=== PATIENT | female | born 1980 | race Caucasian/White ===

== ENCOUNTER 2017-10-28 01:41 | Inpatient (IN) ==
[2017-10-28] MEDS ORDERED: SODIUM CHLORIDE 0.9% 1,000 ML IV STA (03:30)
[2017-10-28] MEDS: SODIUM CHLORIDE 0.9% 1,000 ML IV SCH ×2 (05:15→13:00)
[2017-10-28 06:59] LABS: Basophils % 0.3 % (0.0-0.8); Eosinophils # 0.1 10*3/uL (0.0-0.87); Eosinophils % 0.5 % (0.00-10.9); Hematocrit 32.4 VOL% (35.7-47.0); Hemoglobin 10.3 GM/DL (12.0-16.0); Immature Granulocytes % 0.5 %; Immature Granulocytes Absolute 0.06 #; Lymphocytes # 3.1 10*3/uL (1.4-4.0); Lymphocytes % 23.9 % (21.3-54.2); Mean Corpuscular HGB Conc 31.8 GM/DL (32-36); Mean Corpuscular Hemoglobin 30 PG (27-34); Mean Corpuscular Volume 94.2 FL (87-102); Mean Platelet Volume 10.3 FL (9.6-12.0); Monocytes # 0.9 10*3/uL (0.11-0.8); Monocytes % 7.3 % (1.7-12.7); Neutrophils # 8.7 10*3/uL (1.4-7.4); Neutrophils % 67.5 % (38.7-73.9); Platelet Count 367 T/CUMM (130-400); Red Blood Count 3.44 MC/CUMM (3.8-5.5); Red Cell Distribution Width 14.2 % (9.3-17.3); White Blood Count 12.8 T/CUMM (4-12)
[2017-10-28 07:28] LABS: Calcium 7.9 MG/DL (8.5-10.1); Osmolality,Calculated 277.4 MOS/KG (273-304); Potassium 4.1 MMOL/L (3.5-5.1)
[2017-10-28] MEDS: ENOXAPARIN 40 MG/0.4 ML SYRINGE SUBCUT SCH (10:35)
[2017-10-28 13:06] LABS: ABG Base Excess -6.1 MMOL/L (-2.5-2.5); ABG HCO3 18.5 MMOL/L (20-26); ABG Oxygen Saturation 95.5 % (95-100); ABG PCO2 33.5 MM HG (35-48); ABG PO2 84.3 MM HG (80-95); ABG TCO2 19.5 MMOL/L (23-27)
[2017-10-28] MEDS: PIPERACILLIN/TAZOBACTAM 3,375 MG in SODIUM CHLORIDE 0.9% 100 ML IV SCH ×2 (17:34→20:18)
[2017-10-29] MEDS: KETOROLAC 15 MG/1 ML VIAL IV PRN (00:27)
[2017-10-29] MEDS: SODIUM CHLORIDE 0.9% 1,000 ML IV SCH ×5 (01:38→22:53)
[2017-10-29 04:39] LABS: Basophils # 0.1 10*3/uL (0.0-0.2); Basophils % 0.3 % (0.0-0.8); Eosinophils % 0.1 % (0.00-10.9); Hematocrit 30.1 VOL% (35.7-47.0); Hemoglobin 9.5 GM/DL (12.0-16.0); Immature Granulocytes % 0.8 %; Immature Granulocytes Absolute 0.17 #; Lymphocytes # 4.1 10*3/uL (1.4-4.0); Lymphocytes % 18.4 % (21.3-54.2); Mean Corpuscular HGB Conc 31.6 GM/DL (32-36); Mean Corpuscular Hemoglobin 30 PG (27-34); Mean Corpuscular Volume 95.6 FL (87-102); Mean Platelet Volume 10.2 FL (9.6-12.0); Monocytes # 1.1 10*3/uL (0.11-0.8); Monocytes % 4.9 % (1.7-12.7); Neutrophils % 75.5 % (38.7-73.9); Platelet Count 343 T/CUMM (130-400); Red Blood Count 3.15 MC/CUMM (3.8-5.5); Red Cell Distribution Width 14.6 % (9.3-17.3); White Blood Count 22.5 T/CUMM (4-12)
[2017-10-29 05:02] LABS: Band Neutrophils 1 % (0-10); Giant Platelets Few; Hypochromasia 1+; Lymphocytes 22 % (20-55); Platelet Estimate Adequate; Segmented Neutrophils 75 % (50-85); Total Cells Counted 100
[2017-10-29] MEDS ORDERED: HALOPERIDOL 5 MG/ML AMP IV ONE (05:30)
[2017-10-29] MEDS: PIPERACILLIN/TAZOBACTAM 3,375 MG in SODIUM CHLORIDE 0.9% 100 ML IV SCH (05:30)
[2017-10-29] MEDS: ENOXAPARIN 40 MG/0.4 ML SYRINGE SUBCUT SCH (08:55)
[2017-10-29] MEDS ORDERED: SODIUM CHLORIDE 0.9% 2,750 ML IV ONE (08:56)
[2017-10-29 09:50] LABS: Amorphous Crystals,Urine Occasional /HPF (Few); Apearance,Urine CLOUDY (Clear); Bilirubin,Urine Negative (Negative); Blood, Urine Large mg/dL (Negative); Glucose,Urine (UA) Negative (Negative); Ketones,Urine 5 mg/dL (Negative); Mucus,Urine Occasional /LPF (Occasional); Nitrite,Urine Negative (Negative); Protein,Urine 100 MG/DL; RBC,Urine 1490 /HPF (0-4); Squamous Epithelial Cell,Urine Occasional /HPF (0-10); Urine Color Yellow (Yellow); Urine Specific Gravity 1.029 (1.001-1.035); WBC,Urine 15 /HPF (0-6)
[2017-10-29 09:54] LABS: ABG Base Excess -2.9 MMOL/L (-2.5-2.5); ABG Oxygen Saturation 98.7 % (95-100); ABG PCO2 37.6 MM HG (35-48); ABG PH 7.374 (7.35-7.45); ABG TCO2 20.3 MMOL/L (23-27)
[2017-10-29] MEDS ORDERED: cefTRIAXone 2,000 MG in SYRINGE 1 EACH IV SCH (10:00)
[2017-10-29] MEDS ORDERED: VANCOMYCIN INJ 1,250 MG in SODIUM CHLORIDE 0.45% 250 ML IV SCH (10:00)
[2017-10-29] MEDS ORDERED: ACYCLOVIR INJ 700 MG in SODIUM CHLORIDE 0.9% 250 ML IV SCH (10:00)
[2017-10-29] MEDS ORDERED: LORazepam 2 MG/1 ML VIAL IV ONE ×2 (10:28→13:00)
[2017-10-29] MEDS: cefTRIAXone 1,000 MG in SYRINGE 1 EACH IV SCH (10:51)
[2017-10-29] MEDS: carBAMazepine 200 MG TABLET PO SCH ×2 (10:51→21:05)
[2017-10-29] MEDS: OSELTAMIVIR 75 MG CAPSULE PO SCH ×2 (10:51→21:05)
[2017-10-29] MEDS ORDERED: LORazepam 2 MG/1 ML VIAL ONE (12:33)
[2017-10-29 13:21] LABS: Appearance,CSF Clear; Red Blood Cell,CSF 52 C/CUMM; White Blood Cell,CSF 15 C/CUMM
[2017-10-29 13:22] LABS: Lymphocytes,CSF 67 %; Neutrophils,CSF 26 %
[2017-10-29 13:23] LABS: Monocytes,CSF 7 %
[2017-10-29 13:28] LABS: Glucose,CSF 62 MG/DL (40-70)
[2017-10-29] MEDS: LORazepam 2 MG/1 ML VIAL IV PRN (21:05)
[2017-10-30] MEDS: LORazepam 2 MG/1 ML VIAL IV PRN ×3 (03:00→22:07)
[2017-10-30] MEDS: SODIUM CHLORIDE 0.9% 1,000 ML IV SCH ×4 (03:13→23:35)
[2017-10-30 05:16] LABS: Basophils # 0.1 10*3/uL (0.0-0.2); Basophils % 0.4 % (0.0-0.8); Eosinophils # 0.1 10*3/uL (0.0-0.87); Eosinophils % 0.6 % (0.00-10.9); Hematocrit 26.7 VOL% (35.7-47.0); Hemoglobin 8.6 GM/DL (12.0-16.0); Immature Granulocytes % 0.6 %; Immature Granulocytes Absolute 0.08 #; Lymphocytes # 2.5 10*3/uL (1.4-4.0); Lymphocytes % 17.7 % (21.3-54.2); Mean Corpuscular HGB Conc 32.2 GM/DL (32-36); Mean Corpuscular Hemoglobin 31 PG (27-34); Mean Corpuscular Volume 94.7 FL (87-102); Mean Platelet Volume 10.7 FL (9.6-12.0); Monocytes # 0.8 10*3/uL (0.11-0.8); Monocytes % 5.7 % (1.7-12.7); Neutrophils # 10.7 10*3/uL (1.4-7.4); Platelet Count 301 T/CUMM (130-400); Red Blood Count 2.82 MC/CUMM (3.8-5.5); Red Cell Distribution Width 14.4 % (9.3-17.3); White Blood Count 14.3 T/CUMM (4-12)
[2017-10-30 08:45] LABS: HIV Antigen/Antibody Result Nonreactive (Nonreactive)
[2017-10-30] MEDS: ENOXAPARIN 40 MG/0.4 ML SYRINGE SUBCUT SCH (08:53)
[2017-10-30] MEDS: carBAMazepine 200 MG TABLET PO SCH ×2 (08:53→22:06)
[2017-10-30] MEDS: OSELTAMIVIR 75 MG CAPSULE PO SCH ×2 (08:53→22:05)
[2017-10-30] MEDS: cefTRIAXone 1,000 MG in SYRINGE 1 EACH IV SCH (10:58)
[2017-10-30] MEDS: KETOROLAC 15 MG/1 ML VIAL IV PRN (19:03)
[2017-10-31] MEDS: KETOROLAC 15 MG/1 ML VIAL IV PRN ×2 (00:37→09:13)
[2017-10-31] MEDS: LORazepam 2 MG/1 ML VIAL IV PRN ×3 (05:47→16:48)
[2017-10-31 06:30] LABS: Basophils # 0.1 10*3/uL (0.0-0.2); Basophils % 0.5 % (0.0-0.8); Eosinophils # 0.2 10*3/uL (0.0-0.87); Eosinophils % 2.2 % (0.00-10.9); Hematocrit 27.1 VOL% (35.7-47.0); Hemoglobin 8.8 GM/DL (12.0-16.0); Immature Granulocytes % 0.5 %; Immature Granulocytes Absolute 0.05 #; Lymphocytes # 3.5 10*3/uL (1.4-4.0); Mean Corpuscular HGB Conc 32.5 GM/DL (32-36); Mean Corpuscular Hemoglobin 30 PG (27-34); Mean Corpuscular Volume 93.4 FL (87-102); Mean Platelet Volume 11.3 FL (9.6-12.0); Monocytes # 0.6 10*3/uL (0.11-0.8); Monocytes % 6.1 % (1.7-12.7); Neutrophils # 5.3 10*3/uL (1.4-7.4); Neutrophils % 54.7 % (38.7-73.9); Platelet Count 310 T/CUMM (130-400); Red Cell Distribution Width 13.9 % (9.3-17.3); White Blood Count 9.7 T/CUMM (4-12)
[2017-10-31] MEDS: OSELTAMIVIR 75 MG CAPSULE PO SCH ×2 (09:13→21:10)
[2017-10-31] MEDS: ENOXAPARIN 40 MG/0.4 ML SYRINGE SUBCUT SCH (09:13)
[2017-10-31] MEDS: carBAMazepine 200 MG TABLET PO SCH ×2 (09:13→21:11)
[2017-10-31] MEDS: SODIUM CHLORIDE 0.9% 1,000 ML IV SCH ×3 (16:46→22:20)
[2017-10-31] MEDS: ONDANSETRON 4 MG/2 ML VIAL IV PRN (20:28)
[2017-10-31] MEDS: GABAPENTIN 300 MG CAPSULE PO SCH (21:09)
[2017-10-31] MEDS: clonazePAM 0.5 MG TABLET PO SCH (21:11)
[2017-11-01] MEDS: LORazepam 2 MG/1 ML VIAL IV PRN ×3 (00:33→12:52)
[2017-11-01 06:42] LABS: Basophils # 0.1 10*3/uL (0.0-0.2); Basophils % 0.5 % (0.0-0.8); Eosinophils # 0.2 10*3/uL (0.0-0.87); Hematocrit 29.8 VOL% (35.7-47.0); Hemoglobin 10.1 GM/DL (12.0-16.0); Immature Granulocytes % 0.4 %; Immature Granulocytes Absolute 0.04 #; Lymphocytes # 2.5 10*3/uL (1.4-4.0); Lymphocytes % 26.9 % (21.3-54.2); Mean Corpuscular HGB Conc 33.9 GM/DL (32-36); Mean Corpuscular Hemoglobin 30 PG (27-34); Mean Corpuscular Volume 88.7 FL (87-102); Mean Platelet Volume 10.2 FL (9.6-12.0); Monocytes # 0.7 10*3/uL (0.11-0.8); Neutrophils # 5.7 10*3/uL (1.4-7.4); Neutrophils % 62.2 % (38.7-73.9); Platelet Count 334 T/CUMM (130-400); Red Blood Count 3.36 MC/CUMM (3.8-5.5); Red Cell Distribution Width 13.3 % (9.3-17.3); White Blood Count 9.1 T/CUMM (4-12)
[2017-11-01 07:20] LABS: Calcium 8.4 MG/DL (8.5-10.1); Potassium 3.2 MMOL/L (3.5-5.1)
[2017-11-01] MEDS: OSELTAMIVIR 75 MG CAPSULE PO SCH ×2 (09:02→20:44)
[2017-11-01] MEDS: carBAMazepine 200 MG TABLET PO SCH ×2 (09:02→20:45)
[2017-11-01] MEDS: ENOXAPARIN 40 MG/0.4 ML SYRINGE SUBCUT SCH (09:03)
[2017-11-01] MEDS: KETOROLAC 15 MG/1 ML VIAL IV PRN ×2 (09:03→16:06)
[2017-11-01] MEDS: clonazePAM 0.5 MG TABLET PO SCH ×2 (09:03→20:44)
[2017-11-01] MEDS: SODIUM CHLORIDE 0.9% 1,000 ML IV SCH (09:14)
[2017-11-01] MEDS ORDERED: POTASSIUM CHLORIDE 20 MEQ TABLET PO ONE (10:05)
[2017-11-01] MEDS: ZIPRASIDONE 20 MG CAPSULE PO SCH ×2 (12:51→20:43)
[2017-11-01 14:01] LABS: VDRL Spinal Fluid Negative (Negative)
[2017-11-01] MEDS: GABAPENTIN 300 MG CAPSULE PO SCH (20:45)
[2017-11-02] MEDS: KETOROLAC 15 MG/1 ML VIAL IV PRN ×3 (04:57→10:15)
[2017-11-02] MEDS: LORazepam 2 MG/1 ML VIAL IV PRN ×3 (04:58→17:53)
[2017-11-02] MEDS: ZIPRASIDONE 20 MG CAPSULE PO SCH ×2 (08:52→21:43)
[2017-11-02] MEDS: ENOXAPARIN 40 MG/0.4 ML SYRINGE SUBCUT SCH (08:52)
[2017-11-02] MEDS: clonazePAM 0.5 MG TABLET PO SCH ×2 (08:52→21:45)
[2017-11-02] MEDS: carBAMazepine 200 MG TABLET PO SCH ×2 (08:52→21:44)
[2017-11-02] MEDS: OSELTAMIVIR 75 MG CAPSULE PO SCH ×2 (08:52→21:44)
[2017-11-02 09:36] LABS: Epstein-Barr Virus Result Negative (Negative); Epstein-Barr Virus Source CSF; Specimen Source CSF
[2017-11-02] MEDS ORDERED: KETOROLAC 30 MG/1 ML VIAL IV ONE (13:21)
[2017-11-02] MEDS ORDERED: POTASSIUM CHLORIDE 20 MEQ TABLET PO ONE (14:25)
[2017-11-02] MEDS: ONDANSETRON 4 MG/2 ML VIAL IV PRN ×2 (19:20→23:40)
[2017-11-02] MEDS: GABAPENTIN 300 MG CAPSULE PO SCH (21:44)
[2017-11-03] MEDS: LORazepam 2 MG/1 ML VIAL IV PRN (00:11)
[2017-11-03 08:02] VITALS: BP 121/77
[2017-11-03] MEDS ORDERED: PROMETHAZINE 25 MG TABLET PO PRN (08:32)
[2017-11-03] MEDS: ENOXAPARIN 40 MG/0.4 ML SYRINGE SUBCUT SCH (08:33)
[2017-11-03] MEDS: carBAMazepine 200 MG TABLET PO SCH (08:33)
[2017-11-03] MEDS: OSELTAMIVIR 75 MG CAPSULE PO SCH (08:33)
[2017-11-03] MEDS: clonazePAM 0.5 MG TABLET PO SCH (08:33)
[2017-11-03] MEDS: ZIPRASIDONE 20 MG CAPSULE PO SCH (08:33)
== END 2017-11-03 10:15 | DRG 918 ==
LOC: EDBD → EDUNIT# → N.EDINP 01:41 → N.ED 01:41 → N.CC 04:49 → SUATTDRO 10-29 09:01 → N.2E 10-30 14:20
PROVIDERS: ADMIT Internal Medicine; ATTEND Internal Medicine